=== PATIENT | male | born 1950 | race Caucasian/White ===

== ENCOUNTER 2022-04-26 07:37 | Outpatient (CLI) | payer MEDICARE, SELFPAY ==
--- NOTE | ~2022-04-26 | XR_ITS ---
EXAMINATION: XR UGI w barium swallow DATE: 04/26/2022 08:07 INDICATION: Dysphagia, unspecified. TECHNIQUE: The patient drank thick barium, gas-producing crystals, and thin barium. Fluoroscopy of th e esophagus, stomach, and proximal small bowel was performed. Fluoroscopy exposure time was 0.8 minut es. The total number of images was 533. Total dose-area product was 3.024 Gy-cm^2. COMPARISON: None. FINDINGS: There is no mass or stricture of the esophagus. Esophageal motility is normal. There is no hiatal hernia. There was no gastroesophageal reflux with provocative maneuvers. The stomach folding p attern is normal. There is a diverticulum of the third portion of the duodenum. IMPRESSION: 1. No etiology for the patient's symptoms. Reviewed, dictated and finalized at location A.
== END 2022-04-26 07:38 | disposition home or self-care (01) ==
PROVIDERS: PCP Internal Medicine; Visit Provider Internal Medicine
DX: R13.10 Dysphagia, unspecified (principal)
CPT/HCPCS: 74240

== ENCOUNTER 2024-11-20 09:28 | Outpatient (CLI) | payer MEDICARE, SELFPAY ==
--- NOTE | ~2024-11-20 | US_ITS ---
EXAMINATION: US aorta [facility] scr[facility] DATE: 11/20/2024 15:24 CDT INDICATION: Personal history of nicotine dependence TECHNIQUE: Grayscale, color Doppler, and pulsed Doppler images of the aorta and common iliac arteries were obtained. COMPARISON: None. FINDINGS: The proximal aorta measures 2 cm greatest sagittal dimension. The mid aorta measures 2 cm greatest sa gittal dimension. The distal aorta measures 2.1 cm greatest sagittal dimension. The right common inte rnal iliac artery measures 1.6 cm. The left common iliac artery measures 1.4 cm. IMPRESSION: 1. Normal caliber aorta without evidence for aneurysm. Reviewed, dictated and finalized at location A.
--- NOTE | ~2024-11-20 | US_ITS ---
US abdomen limited INDICATION: Abnormal laboratory studies PROCEDURE: Realtime right upper abdominal ultrasound. COMPARISON: No prior studies for comparison. FINDINGS: The pancreas is normal without focal mass or pancreatic ductal dilation. Liver echotexture is increased, consistent with fatty infiltration. Liver is enlarged measuring 19 cm. There is nik l directional flow in the portal vein. Gallbladder is surgically absent. Common bile duct measures 4 mm. No sonographic Adkins's sign. IMPRESSION: 1: Hepatomegaly with fatty infiltration of the liver. Reviewed, dictated and finalized at location A.
== END 2024-11-20 09:29 | disposition home or self-care (01) ==
LOC: GOSHIMG 09:29
PROVIDERS: PCP Family Medicine; Visit Provider Family Medicine
DX: K76.0 Fatty (change of) liver, not elsewhere classified (principal); R74.8 Abnormal levels of other serum enzymes; Z87.891 Personal history of nicotine dependence
CPT/HCPCS: 76705; 76706

== ENCOUNTER 2025-06-21 19:27 | Observation (INO) | payer MEDICARE, SELFPAY ==
--- NOTE | ~2025-06-21 | XR_ITS ---
EXAMINATION: XR chest 2V 06/21/2025 21:44 INDICATION: Fever, cough and influenza PROCEDURE: 2 view chest COMPARISON: No prior studies for comparison. FINDINGS: The lungs are clear. The cardiomediastinal silhouette is within normal limits. There are no pleural effusions. There is no pneumothorax suspected. IMPRESSION: 1: NO ACUTE CARDIOPULMONARY DISEASE. Reviewed, dictated and finalized at location O. HAULER HELPER
[2025-06-21 19:48] VITALS: BP 142/82; PULSE 139; RESP 20; TEMP 38.8; O2SAT 93
--- NOTE | 2025-06-21 19:58 | ECG_ITS ---
Test Date: 2025-06-21 20:02:54 Measurements Intervals [place] Rate: 136 P: 30 CT: 149 QRS: 115 QRSD: 90 T: 3 QT: 294 QTc: 442 Interpretive Statements SINUS TACHYCARDIA RIGHT AXIS DEVIATION DELAYED PRECORDIAL R/S TRANSITION MINIMAL Q WAVES- INFERIOR LEADS BORDERLINE ST-T WAVE ABNORMALITY- INFERIOR LEADS ABNORMAL ECG No previous ECG available for comparison Electronically Signed On 06-21-2025 20:04:37 IMPROVEMENT NURSE by Wang Adorno D.O.
[2025-06-21] MEDS: ACETAMINOPHEN 500 MG TABLET 1000 MG PO (20:01)
[2025-06-21 20:48] LABS: Influenza A QL RT-PCR Positive (Negative); Influenza B QL RT-PCR Negative (Negative); RSV RNA, RT-PCR Negative (Negative); SARS-CoV-2 RNA PCR Negative (Negative)
[2025-06-21] MEDS: SODIUM CHLORIDE 0.9% IV 1,000 ML 999 ML IV CONT (22:02)
[2025-06-21 22:11] LABS: Hematocrit 49.8 % (42.0-52.0); Hemoglobin 16.9 g/dL (14.0-18.0); Immature Granulocyte Percent A 0.3 % (0-0.5); Lymphocytes Absolute Auto 0.46 K/mm3 (0.9-3.2); Mean Corpuscular HGB Conc 33.9 g/dl (32-36); Mean Corpuscular Hemoglobin 31.8 pg (26-34); Mean Corpuscular Volume 93.6 fl (80-100); Nucleated Red Blood Cells Absolute Auto 0.000 K/mm3 (0.0-0.012); Nucleated Red Blood Cells Perc 0.0 % (0.0-0.2); Platelet Count Result 203 k/mm3 (150-375); Red Blood Count 5.32 M/mm3 (4.6-6.20); White Blood Count 9.6 K/mm3 (4.5-10.0)
[2025-06-21 22:24] LABS: INR 1.1; Prothrombin Time 14.2 Seconds (11.1-14.7)
[2025-06-21 22:25] LABS: Partial Thromboplastin Time 26.1 Seconds (22.3-36.8)
[2025-06-21 22:26] LABS: Alanine Aminotransferase 102 U/L (6-50); Albumin Level 4.9 g/dL (3.5-5.1); Alkaline Phosphatase 117 U/L (38-126); Anion Gap 13 mmol/L (4-12); Aspartate Amino Transferase 111 U/L (17-59); Bilirubin,Total 1.3 mg/dL (0.2-1.3); Blood Urea Nitrogen 24 mg/dL (9-20); CRP 2.5 mg/dL (<1.0); Calcium 10.6 mg/dL (8.4-10.2); Carbon Dioxide 26 mmol/L (22-30); Chloride 100 mmol/L (98-107); Estimated CRCL calculation 32 ml/min; Estimated Glomerular Filt Rate 38; Glucose 181 mg/dL (65-110); Potassium 3.4 mmol/L (3.4-5.0); Sodium 139 mmol/L (137-145); Total Protein 9.2 g/dL (6.3-8.2)
[2025-06-21 23:00] LABS: Add Urine Microscopic? YES; Appearance Urine Clear (Clear); Glucose Urine UA 3+ mg/dL (Negative); Leukocyte Esterase Ur Negative LEU/UL (Negative); Nitrate Urine Negative (Negative); Non Pathogenic Casts 0-2; Specific Grav Ur 1.034 (1.001-1.035)
--- NOTE | 2025-06-21 23:10 | ED_ITS ---
HPI - General Adult General Chief complaint: Unspecified Stated complaint: high blood sugar Time Seen by Provider: 06/21/25 21:35 Source: patient Mode of arrival: wheelchair Limitations: no limitations History of Present Illness HPI narrative: This is a 75 year old male that presents to the ER for generalized weakness. Reports fevers, cough, body aches. Ongoing since this morning. He had a couple of ground level falls due to weakness. Reports no injuries sustained from them. Family witnessed falls, no head injuries. Related Data Home Medications ?Medication ?Instructions ?Recorded ?Confirmed ?Last Taken ?Type naproxen sodium 220 mg capsule 220 mg PO Q8H 08/10/19 04/12/22 Unknown History (Aleve) Allergies Allergy/AdvReac Type Severity Reaction Status Date / Time metformin AdvReac Mild Muscle Pain Verified 06/21/25 19:58 Review of Systems 2 Review of Systems: All systems reviewed & are unremarkable except as noted in HPI and below PMFSH Past Medical History Medical History (Updated 06/21/25 @ 23:42 by Alissa Abdullahi PA-C) Hypothyroidism (acquired) Type 2 diabetes mellitus without complication, without long-term current use of insulin Hypertension Social History Social History Smoking status: Unknown if ever smoked Alcohol intake: never Lack of Transportation: No Lack of Food: Never True Current Housing: I Have Housing Concerned About Future Housing: No Difficulty Paying Gas/Electric Bills: No Difficulty Paying for Meds: No Currently Unemployed: No Exam 2 Narrative: GENERAL: Ill-appearing, well-nourished, and in no acute distress. HEAD: Normocephalic, atraumatic. EYES: PERRLA and EOMI. ENT: Nares clear, no rhinorrhea or epistaxis. Mucous membranes moist. Oropharynx without tonsillar hypertrophy exudate or other lesions. Bilateral TMs pearly sanches non-bulging NECK: Supple. No adenopathy or masses. CHEST: Clear to auscultation. No respiratory distress. No wheezes rales or rhonchi HEART: Regular rate and rhythm. No murmur heard. Normal peripheral pulses. EXTREMITIES: Normal range of motion. No edema. SKIN: Warm, dry, no rash. NEURO: No focal deficits. Alert and oriented x3. CN II-XII grossly intact PSYCH: Normal mood and affect Course Vital Signs Vital signs: Vital Signs Temperature 101.8 F H 06/21/25 19:48 Pulse Rate 139 H 06/21/25 19:48 Respiratory Rate 20 06/21/25 19:48 Blood Pressure 142/82 H 06/21/25 19:48 Pulse Oximetry 93 06/21/25 19:48 Oxygen Delivery Room Air 06/21/25 19:48 Temperature 98.4 F 06/21/25 23:40 Pulse Rate 109 H 06/21/25 23:40 Respiratory Rate 18 06/21/25 23:40 Blood Pressure 115/74 06/21/25 23:40 Pulse Oximetry 94 06/21/25 23:40 Oxygen Delivery Room Air 06/21/25 19:48 MDM MDM Narrative Medical decision making narrative: Patient presents the emergency department for fevers, cough, body aches, generalized weakness. Patient febrile and tachycardic upon arrival, this improved with dose of Tylenol and IV fluids. Cbc without leukocytosis. Metabolic panel with evidence of dehydration. Influenza A positive. Patient started on Tamiflu. Chest x-ray without acute cardiopulmonary abnormality. Urine without evidence of infection. Patient will be admitted to the hospitalist service for further management Differential Diagnosis Differential Diagnosis: influenza, COVID, pneumonia, dehydration, electrolyte derangement Lab Data MDM Lab Attestation statement: I personally reviewed the patient's lab results. 06/21/25 22:00 06/21/25 22:00 Labs: Lab Results 06/21/25 06/21/25 06/21/25 Range/Units 19:51 20:06 22:00 WBC 9.6 (4.5-10.0) K/mm3 RBC 5.32 (4.6-6.20) M/mm3 Hgb 16.9 (14.0-18.0) g/dL Hct 49.8 (42.0-52.0) % MCV 93.6 (80-100) fl MCH 31.8 (26-34) pg MCHC 33.9 (32-36) g/dl RDW 13.7 (11.5-14.5) % Plt Count 203 (150-375) k/mm3 MPV 10.7 H (7.4-10.4) fl Immature Gran % (Auto) 0.3 (0-0.5) % Neut % (Auto) 84.1 H (45.5-73.1) % Lymph % (Auto) 4.8 L (18.3-44.2) % [place] % (Auto) 10.3 H (2.6-8.5) % Eos % (Auto) 0.0 (0-4.4) % Baso % (Auto) 0.5 (0.2-1.2) % Lymph # (Auto) 0.46 L (0.9-3.2) K/mm3 [place] # (Auto) 1.0 H (0.1-0.6) K/mm3 Eos # (Auto) 0.0 (0-0.3) K/mm3 Baso # (Auto) 0.1 (0.0-0.1) K/mm3 Abs Immat Gran (auto) 0.03 (0.00-0.031) K/mm3 Absolute Neuts (auto) 8.1 H (1.3-6.7) K/mm3 Absolute Nucleated RBC 0.000 (0.0-0.012) K/mm3 Nucleated RBC % 0.0 (0.0-0.2) % PT 14.2 (11.1-14.7) Seconds INR 1.1 APTT 26.1 (22.3-36.8) Seconds Sodium 139 (137-145) mmol/L Potassium 3.4 (3.4-5.0) mmol/L Chloride 100 (98-107) mmol/L Carbon Dioxide 26 (22-30) mmol/L Anion Gap 13 H (4-12) mmol/L BUN 24 H (9-20) mg/dL Creatinine 1.78 H (0.7-1.3) mg/dL Estim Creat Clear Calc 32 ml/min Estimated GFR 38 L (59 - ) Glucose 181 H (65-110) mg/dL POC Capillary Glucose 194 H (65-105) mg/dl Lactic Acid 1.6 (0.7-2.0) mmol/L Calcium 10.6 H (8.4-10.2) mg/dL Total Bilirubin 1.3 (0.2-1.3) mg/dL AST 111 H (17-59) U/L ALT 102 H (6-50) U/L Alkaline Phosphatase 117 (38-126) U/L C-Reactive Protein 2.5 H (<1.0) mg/dL Total Protein 9.2 H (6.3-8.2) g/dL Albumin 4.9 (3.5-5.1) g/dL Urine Color (Yellow) Urine Appearance (Clear) Urine pH (5.0-9.0) Ur Specific [place] (1.001-1.035) Urine Protein (Negative) mg/dL Urine Glucose (UA) (Negative) mg/dL Urine Ketones (Negative) mg/dL Ur Blood (Man) (Negative) Urine Nitrate (Negative) Urine Bilirubin (Negative) Urine Urobilinogen (<2.0) mg/dL Leukocyte Esterase Rfl (Negative) NATALIE/UL Urine RBC (0-2) /hpf Urine WBC (0-3) /hpf Ur Squamous Epith Cells (Few) /hpf Urine Bacteria /hpf Urine Casts Influenza A (RT-PCR) Positive A (Negative) Influenza B (RT-PCR) Negative (Negative) RSV (RT-PCR) Negative (Negative) SARS-CoV-2 RNA (RT-PCR) Negative (Negative) 06/21/25 Range/Units 22:49 WBC (4.5-10.0) K/mm3 RBC (4.6-6.20) M/mm3 Hgb (14.0-18.0) g/dL Hct (42.0-52.0) % MCV (80-100) fl MCH (26-34) pg MCHC (32-36) g/dl RDW (11.5-14.5) % Plt Count (150-375) k/mm3 MPV (7.4-10.4) fl Immature Gran % (Auto) (0-0.5) % Neut % (Auto) (45.5-73.1) % Lymph % (Auto) (18.3-44.2) % [place] % (Auto) (2.6-8.5) % Eos % (Auto) (0-4.4) % Baso % (Auto) (0.2-1.2) % Lymph # (Auto) (0.9-3.2) K/mm3 [place] # (Auto) (0.1-0.6) K/mm3 Eos # (Auto) (0-0.3) K/mm3 Baso # (Auto) (0.0-0.1) K/mm3 Abs Immat Gran (auto) (0.00-0.031) K/mm3 Absolute Neuts (auto) (1.3-6.7) K/mm3 Absolute Nucleated RBC (0.0-0.012) K/mm3 Nucleated RBC % (0.0-0.2) % PT (11.1-14.7) Seconds INR APTT (22.3-36.8) Seconds Sodium (137-145) mmol/L Potassium (3.4-5.0) mmol/L Chloride (98-107) mmol/L Carbon Dioxide (22-30) mmol/L Anion Gap (4-12) mmol/L BUN (9-20) mg/dL Creatinine (0.7-1.3) mg/dL Estim Creat Clear Calc ml/min Estimated GFR (59 - ) Glucose (65-110) mg/dL POC Capillary Glucose (65-105) mg/dl Lactic Acid (0.7-2.0) mmol/L Calcium (8.4-10.2) mg/dL Total Bilirubin (0.2-1.3) mg/dL AST (17-59) U/L ALT (6-50) U/L Alkaline Phosphatase (38-126) U/L C-Reactive Protein (<1.0) mg/dL Total Protein (6.3-8.2) g/dL Albumin (3.5-5.1) g/dL Urine Color Yellow (Yellow) Urine Appearance Clear (Clear) Urine pH 5.5 (5.0-9.0) Ur Specific [place] 1.034 (1.001-1.035) Urine Protein 1+ H (Negative) mg/dL Urine Glucose (UA) 3+ H (Negative) mg/dL Urine Ketones 1+ H (Negative) mg/dL Ur Blood (Man) Trace (Negative) Urine Nitrate Negative (Negative) Urine Bilirubin Negative (Negative) Urine Urobilinogen 0.2 (<2.0) mg/dL Leukocyte Esterase Rfl Negative (Negative) NATALIE/UL Urine RBC 0-2 (0-2) /hpf Urine WBC 0-5 (0-3) /hpf Ur Squamous Epith Cells None seen (Few) /hpf Urine Bacteria None seen /hpf Urine Casts 0-2 Influenza A (RT-PCR) (Negative) Influenza B (RT-PCR) (Negative) RSV (RT-PCR) (Negative) SARS-CoV-2 RNA (RT-PCR) (Negative) Imaging Data Radiologist's impression: ITS Impressions Chest X-Ray 06/21/25 22:05 IMPRESSION: 1: NO ACUTE CARDIOPULMONARY DISEASE. Critical Care Time Critical Care Time Critical Care Time: No Discharge Plan Discharge Clinical Impression: Influenza A, Weakness, Dehydration Patient Disposition: Still a Patient Condition: Improved Patient Language: Azeri Prescriptions: No Action naproxen sodium [Aleve] 220 mg capsule 220 mg PO Q8H Januvia 25 mg tablet 25 mg PO DAILY Qty: 90 0RF Rx Instructions: Take 1 tablet po qd x 30 days then increase to 2 tablets po qd metformin 1,000 mg tablet See Rx Instructions .ROUTE .COMPLEX Qty: 180 1RF Dose Instruction: TAKE 1 TABLET BY MOUTH TWICE DAILY Rx Instructions: TAKE 1 TABLET BY MOUTH TWICE DAILY (DME) blood-glucose meter [Accu-Chek Guide Glucose Meter] Misc See Rx Instructions .Route Qty: 1 0RF Rx Instructions: As directed (DME) Accu-Chek Guide test strips Strip See Rx Instructions .Route Qty: 100 0RF Rx Instructions: Check blood glucose 1xdaily As directed clobetasol 0.05 % cream 1 applic topical BID 7 Days Qty: 60 2RF Rx Instructions: apply to knee, neck, arms lisinopril-hydrochlorothiazide 20-12.5 mg tablet See Rx Instructions .ROUTE .COMPLEX Qty: 180 1RF Dose Instruction: TAKE 1 TABLET BY MOUTH TWICE A DAY Rx Instructions: TAKE 1 TABLET BY MOUTH TWICE A DAY levothyroxine 75 mcg tablet See Rx Instructions .ROUTE .COMPLEX Qty: 90 1RF Dose Instruction: TAKE 1 TABLET BY MOUTH EVERY DAY Rx Instructions: TAKE 1 TABLET BY MOUTH EVERY DAY Jardiance 25 mg tablet See Rx Instructions .ROUTE .COMPLEX Qty: 90 1RF Dose Instruction: TAKE 1 TABLET BY MOUTH EVERY DAY IN THE MORNING Rx Instructions: TAKE 1 TABLET BY MOUTH EVERY DAY IN THE MORNING Follow-up/Referrals: Jose Guadalupe Mccormick MD [Primary Care Provider, [facility]]
[2025-06-21 23:18] VITALS: BP 115/74; PULSE 108; RESP 18; TEMP 36.9; O2SAT 94
[2025-06-21 23:19] VITALS: TEMP 36.9
[2025-06-21] MEDS: OSELTAMIVIR PHOSPHATE 75 MG CAPSULE PO (23:19)
[2025-06-21 23:40] VITALS: BP 115/74; PULSE 109; RESP 18; TEMP 36.9; O2SAT 94
[2025-06-21 23:58] LABS: Creatine Kinase 126 U/L (55-170)
[2025-06-22] VITALS (14 sets, daily range): BP systolic 122–136; BP diastolic 71–109; PULSE 94–123; RESP 17–21; TEMP 36.7–36.8; O2SAT 89–96; BMI 27.1
[2025-06-22] MEDS: SODIUM CHLORIDE 0.9% IV 1,000 ML 100 ML IV CONT (00:17)
--- NOTE | 2025-06-22 02:11 | WPCEDHO ---
ED Hand Off Checklist All vitals saved:yes IV Site documented:yes All med administrations documented:yes Triage Note Triage Note DAUGHTER REPORTS ARTEM HAS 06/21/25 21:31 FALLEN TWICE TODAY. DAUGHTER REPORTS PATIENT HAS BEEN CONGESTED FOR SEVERAL WEEKS. REPORTED TO BE EXTREMELY WEAK. DENIES PAIN. APPETITE GOOD. NON PRODUCTIVE COUGH. RUNNY NOSE. HOARSENESS. UNKNOWN FEVER. NO REPORTED MEDICAL CARE. Allergies metformin Adverse Reaction (Mild, Verified 06/21/25 19:58) Muscle Pain Active Medications including assessments/comments Sodium Chloride (Normal Saline Iv) 1,000 mls @ 100 mls/hr IV CONT .Q10H AUGUST Stop: 06/22/25 09:44 Last Admin: 06/22/25 00:17 Dose: 100 mls/hr Documented By: LAURIE Infusion/Titration Document 06/22/25 00:17 LAURIE (Rec: 06/22/25 00:17 EMW [id number]) Intake IV Site Peripheral Access Left Antecubital Container Volume 1,000 Waste Amount 0 Dosing Infusion Rate 100 Cumulative Dose Not Applicable Increase/Decrease Started Elapsed Time Elapsed Time ( 0m minutes) Administered/Completed Medications Discontinued Medications Acetaminophen (Acetaminophen 500 Mg Tablet) 1,000 mg PO ONCE STA Stop: 06/21/25 20:00 Last Admin: 06/21/25 20:01 Dose: 1,000 mg Documented By: RICKS Sodium Chloride (Normal Saline Iv) 1,000 mls @ 999 mls/hr IV CONT .Q1H1M STA Stop: 06/21/25 22:37 Last Infusion: 06/21/25 23:13 Dose: Infused Documented By: Admin: 06/21/25 22:02 Dose: 999 mls/hr Documented By: LAURIE Oseltamivir Phosphate (Oseltamivir Phosphate 75 Mg Capsule) 75 mg PO ONCE STA Stop: 06/21/25 23:12 Last Admin: 06/21/25 23:19 Dose: 75 mg Documented By: LAURIE Interventions/Assessments Cardiac Monitoring Start: 06/21/25 19:28 Freq: Status: Active Protocol: Document 06/22/25 00:23 CHANAW (Rec: 06/22/25 00:23 EMW [id number]) Logging Assistant Assessment Pulse Rate (60-100) 106 H General Assessment Start: 06/21/25 19:28 Freq: Status: Active Protocol: Document 06/21/25 22:08 EMW (Rec: 06/21/25 22:09 EMW [id number]) GA Respiratory Assessment Symptoms Congestion,Cough Cough Description Acute,Dry IV / Saline Lock, Insert Start: 06/21/25 19:28 Freq: Status: Active Protocol: Document 06/21/25 22:02 EMW (Rec: 06/21/25 22:02 EMW [id number]) IV Assessment Peripheral Access Left Antecubital IV Catheter Access Initiated IV Insertion Date 06/21/25 IV Insertion Time 22:02 Catheter Gauge 18 IV Insertion 1 Attempts Ultrasound Used for No Placement IV Site Assessment WNL IV Care and WNL Maintenance Additional IV placed by shell RN Comments Last Vital Signs Temperature 98.4 F 06/21/25 23:40 Pulse Rate 102 H 06/22/25 02:01 Respiratory Rate 21 H 06/22/25 02:01 Pulse Oximetry 94 06/22/25 02:01 Blood Pressure 127/71 06/22/25 02:01 Blood Pressure Mean 87 06/22/25 02:01 Blood Pressure Position Sitting 06/21/25 23:40 Oxygen Delivery Room Air 06/21/25 19:48 Weight 81.66 kg 06/21/25 19:48 Last Result - Abnormals Only MPV 10.7 fl (7.4-10.4) H 06/21/25 22:00 Neut % (Auto) 84.1 % (45.5-73.1) H 06/21/25 22:00 Lymph % (Auto) 4.8 % (18.3-44.2) L 06/21/25 22:00 [place] % (Auto) 10.3 % (2.6-8.5) H 06/21/25 22:00 Lymph # (Auto) 0.46 K/mm3 (0.9-3.2) L 06/21/25 22:00 [place] # (Auto) 1.0 K/mm3 (0.1-0.6) H 06/21/25 22:00 Absolute Neuts (auto) 8.1 K/mm3 (1.3-6.7) H 06/21/25 22:00 Anion Gap 13 mmol/L (4-12) H 06/21/25 22:00 BUN 24 mg/dL (9-20) H 06/21/25 22:00 Creatinine 1.78 mg/dL (0.7-1.3) H 06/21/25 22:00 Estimated GFR 38 (59-) L 06/21/25 22:00 Glucose 181 mg/dL (65-110) H 06/21/25 22:00 POC Capillary Glucose 176 mg/dl (65-105) H 06/22/25 00:10 Calcium 10.6 mg/dL (8.4-10.2) H 06/21/25 22:00 AST 111 U/L (17-59) H 06/21/25 22:00 ALT 102 U/L (6-50) H 06/21/25 22:00 C-Reactive Protein 2.5 mg/dL (<1.0) H 06/21/25 22:00 Total Protein 9.2 g/dL (6.3-8.2) H 06/21/25 22:00 Urine Protein 1+ mg/dL (Negative) H 06/21/25 22:49 Urine Glucose (UA) 3+ mg/dL (Negative) H 06/21/25 22:49 Urine Ketones 1+ mg/dL (Negative) H 06/21/25 22:49 Influenza A (RT-PCR) Positive (Negative) A 06/21/25 20:06 Most Recent Suicide Severity Rating Suicide Severity Rating NO RISK INDICATED 06/21/25 21:31
--- NOTE | 2025-06-22 07:08 | PM.IMHP2 ---
H&P: HPI History of Present Illness Date/Time: 06/22/25 07:08 Chief Complaint: High blood sugar Narrative: This is a 75-year-old male patient came to the emergency room with complaints of generalized weakness. He has a history of hypothyroidism, diabetes, and hypertension. The patient reports fevers, body aches and cough. It started the a.m. prior to being seen in the emergency room. The patient also had a couple falls related to his weakness. He denied any injury sustained from the fall. Family members were present when the falls occur and reported that there were no head injuries. His anion gap is 13. BUN 24 and creatinine 1.78. His GFR is 38. His baseline GFR somewhere between 41 and 49. His blood sugar was 188 in repeat was 159. AST is 111 an ALT 102. Patient has 1+ protein, 3+ glucose and 1+ ketones in his urine. The patient was found to be positive for influenza A. The patient was started on IV fluids, Tylenol and Tamiflu. Chest x-ray was read as no acute cardiopulmonary disease. His pulse oximetry declined to 89 %, the patient was placed on oxygen at 2 L per nasal cannula. Patient does not typically wear oxygen. The patient is being admitted for observation status on the date of service of 06/22/2025. Review of Systems Constitutional: Constitutional: Reports as per HPI and Reports no additional constitutional complaints Eyes: Eyes: Reports as per HPI and Reports no additional eye complaints ENT: Reports system reviewed and no additional complaints, except as documented and Reports Normal hearing present Cardiovascular: Cardiovascular: Reports no additional cardiovascular complaints Respiratory: Respiratory: Reports as per HPI and Reports no additional respiratory complaints Gastrointestinal: Gastrointestinal: Reports as per HPI and Reports no additional gastrointestinal complaints Musculoskeletal: Musculoskeletal: Reports no additional musculoskeletal complaints Integumentary/Breasts: Skin/Breast: Reports system reviewed and no additional complaints, except as docu Neurologic: Reports system reviewed and no additional complaints, except as documented and Reports Normal hearing present Psychiatric: Psychiatric: Reports no additional psychiatric complaints and Reports as per HPI Hematologic/Lymphatic: Hematologic/Lymphatic: Reports no additional hematologic/lymphatic complaints Allergic/Immunologic: Allergic/Immunologic: Reports no additional allergic/immunologic complaints [facility] Past Medical History Medical History (Updated 06/22/25 @ 07:41 by JELANI Lama) Influenza A Chronic renal failure, stage 3b Hypothyroidism (acquired) Type 2 diabetes mellitus without complication, without long-term current use of insulin Hypertension Surgical History Surgical History History of appendectomy History of tonsillectomy and adenoidectomy Hx of cholecystectomy Family History Family History Mother Breast cancer Social History Social History (Updated 06/22/25 @ 07:22 by Tabitha Burden APRN) Social History: He is and lives with his . He was a former smoker. He is retired. He has 3 children. Code status: Full code Smoking status: Former smoker Tobacco type: cigarettes Alcohol intake: current Drinks per week: 7 Substance use: former Substance use type: does not use Lack of Transportation: No Lack of Food: Never True Current Housing: I Have Housing Concerned About Future Housing: No Difficulty Paying Gas/Electric Bills: No Difficulty Paying for Meds: No Currently Unemployed: No Education: High School Diploma/GED Difficulty w/ Childcare or Family Care: No Spiritual care concerns: No Meds Home Medications and Allergies Home Medications ?Medication ?Instructions ?Recorded ?Confirmed ?Type naproxen sodium 220 mg capsule 220 mg PO Q8H 08/10/19 06/22/25 History (Aleve) metformin 1,000 mg tablet See Rx Instructions .Route 04/04/23 06/22/25 Rx Held on 05/31/23. .COMPLEX #180 tabs Instructions: .Provider Order blood-glucose meter (Accu-Chek #1 ea 03/28/24 06/22/25 Rx Guide Glucose Meter) blood sugar diagnostic (Accu-Chek #100 ea 04/23/24 06/22/25 Rx Guide test strips) clobetasol 0.05 % topical cream 1 applic topical BID psoriasis 1 11/28/24 06/22/25 Rx week #60 grams lisinopril 20 See Rx Instructions .Route 12/29/24 06/22/25 Rx mg-hydrochlorothiazide 12.5 mg .COMPLEX #180 tabs tablet sitagliptin phosphate 25 mg tablet 25 mg PO DAILY #90 tabs 01/08/25 06/22/25 Rx (Januvia) levothyroxine 75 mcg tablet See Rx Instructions .Route 03/25/25 06/22/25 Rx .COMPLEX #90 tabs empagliflozin 25 mg tablet See Rx Instructions .Route 04/01/25 06/22/25 Rx (Jardiance) .COMPLEX #90 tabs Allergies Allergy/AdvReac Type Severity Reaction Status Date / Time metformin AdvReac Mild Muscle Pain Verified 06/22/25 03:06 Vital Signs Vital Signs - 24 hr 06/21/25 19:48 06/21/25 23:18 06/21/25 23:19 Temperature 101.8 F H 98.4 F 98.4 F Pulse Rate 139 H 108 H Respiratory Rate 20 18 Blood Pressure 142/82 H 115/74 Pulse Oximetry 93 94 Oxygen Delivery Room Air Oxygen Flow Rate 06/21/25 23:40 06/22/25 00:15 06/22/25 00:23 Temperature 98.4 F Pulse Rate 109 H 104 H 106 H Respiratory Rate 18 17 Blood Pressure 115/74 Pulse Oximetry 94 92 Oxygen Delivery Oxygen Flow Rate 06/22/25 00:30 06/22/25 01:00 06/22/25 01:48 Temperature Pulse Rate 106 H 105 H 107 H Respiratory Rate 20 21 H 20 Blood Pressure 133/92 H Pulse Oximetry 93 93 93 Oxygen Delivery Oxygen Flow Rate 06/22/25 02:00 06/22/25 02:01 06/22/25 02:15 Temperature Pulse Rate 103 H 102 H 102 H Respiratory Rate 20 21 H 19 Blood Pressure 127/71 127/71 Pulse Oximetry 94 94 95 Oxygen Delivery Oxygen Flow Rate 06/22/25 02:29 06/22/25 02:29 06/22/25 03:02 Temperature 98.3 F Pulse Rate 107 H Respiratory Rate 18 Blood Pressure 122/75 Pulse Oximetry 89 L 95 96 Oxygen Delivery Room Air Nasal Cannula Oxygen Flow Rate 2 06/22/25 04:00 Temperature 98.1 F Pulse Rate 106 H Respiratory Rate 18 Blood Pressure 135/109 H Pulse Oximetry 95 Oxygen Delivery Oxygen Flow Rate Exam Const: General: cooperative, no acute distress, well developed, awake, Physically active, average body habitus and well nourished Nutritional Appearance: average body habitus and well nourished Orientation/consciousness: oriented to person, oriented to place, oriented to time and patient oriented x3 Limitations: no limitations HENMT: Head: normal to inspection and abrasion Ears: hearing grossly normal bilaterally Eyes: General: appearance normal, both eyes and all related structures Alignment and Position: alignment normal Eyelids: eyelids normal EOM: EOMs intact bilaterally Neck: Neck: normal visual inspection and full ROM Resp: Effort & Inspection: normal respiratory effort Auscultation: clear to auscultation bilaterally Cardio: Palpation: normal PMI Rate: regular rate Rhythm: regular rhythm Heart sounds: S1 normal heart sound present and S2 normal heart sound present Peripheral pulses: Peripheral pulses 2+ throughout GI: Inspection: normal to inspection Percussion: Yes normal to percussion Auscultation: normal bowel sounds Rectal Exam: deferred : General: Yes no CVA tenderness Back/Spine/Pelvis: Back: no CVA tenderness Cervical Spine: cervical ROM normal Skin: General skin exam: normal color Lesions: no lesions Rashes: no rashes Trauma: no lacerations or abrasions Wounds: no wounds Hair: normal Nails: normal Neuro: General: oriented to person, oriented to place, oriented to time and patient oriented x3 Cranial nerves: Yes Equal, round and reactive pupils present and Yes Normal hearing present Cognition (Neuro): normal cognition Speech: normal speech Motor exam (neuro): 5/5 motor strength present throughout Sensory Exam: normal sensation Extrem: General: normal to inspection Right upper extremity: normal to inspection and shoulder/upper arm Left upper extremity: normal to inspection and shoulder/upper arm Right lower extremity: normal to inspection Left lower extremity: normal to inspection Psych: Appearance: grossly normal Mental Status: mental status grossly normal Speech and movement: Normal speech and movement present Affect: normal affect Attitude: cooperative Thought process: Normal thought process present Thought content: Yes Normal thought content present Insight: Good insight present (Psych) Judgement: Good judgement present (Psych) Results Labs Labs: Short CBC 06/21/25 Range/Units 22:00 WBC 9.6 (4.5-10.0) K/mm3 Hgb 16.9 (14.0-18.0) g/dL Hct 49.8 (42.0-52.0) % Plt Count 203 (150-375) k/mm3 BMP 06/21/25 22:00 Sodium 139 Potassium 3.4 Chloride 100 Carbon Dioxide 26 BUN 24 H Creatinine 1.78 H Glucose 181 H Calcium 10.6 H Cardiac Enzymes 06/21/25 Range/Units 21:59 Total Creatine Kinase 126 (55-170) U/L Liver Function 06/21/25 Range/Units 22:00 Total Bilirubin 1.3 (0.2-1.3) mg/dL AST 111 H (17-59) U/L ALT 102 H (6-50) U/L Alkaline Phosphatase 117 (38-126) U/L Albumin 4.9 (3.5-5.1) g/dL Urine 06/21/25 Range/Units 22:49 Urine Color Yellow (Yellow) Urine Appearance Clear (Clear) Urine pH 5.5 (5.0-9.0) Ur Specific [place] 1.034 (1.001-1.035) Urine Protein 1+ H (Negative) mg/dL Urine Glucose (UA) 3+ H (Negative) mg/dL ECG Interpretation: Test Date: 2025-06-21 20:02:54 Measurements Intervals [place] Rate: 136 P: 30 [place]: 149 QRS: 115 QRSD: 90 T: 3 QT: 294 QTc: 442 Interpretive Statements SINUS TACHYCARDIA RIGHT AXIS DEVIATION DELAYED PRECORDIAL R/S TRANSITION MINIMAL Q WAVES- INFERIOR LEADS BORDERLINE ST-T WAVE ABNORMALITY- INFERIOR LEADS ABNORMAL ECG No previous ECG available for comparison Electronically Signed On 06-21-2025 20:04:37 FIELD SALES REPRESENTATIVE by Wang Adorno D.O. Imaging Chest x-ray: Radiologist's impression: ITS Impressions Chest X-Ray 06/21/25 22:05 IMPRESSION: 1: NO ACUTE CARDIOPULMONARY DISEASE. Quality VTE Prophylaxis VTE prophylaxis: mechanical ordered Assessment and Plan Assessment and plan (1) Influenza A: Code(s): J10.1 - Influenza due to other identified influenza virus with other respiratory manifestations Status: Acute Assessment and Plan: -the patient was started IV fluids -the patient was started on Tamiflu. -the patient was so weak that he was falling. -may consider PT OT if no improvement (2) Hypertension: Code(s): I10 - Essential (primary) hypertension Status: Acute Assessment and Plan: -patient is lisinopril hydrochlorothiazide which she is currently hold. -p.r.n. hydralazine with parameters. (3) Type 2 diabetes mellitus without complication, without long-term current use of insulin: Code(s): E11.9 - Type 2 diabetes mellitus without complications Status: Acute Assessment and Plan: -Accu-Cheks AC and HS with sliding scale insulin hypoglycemic protocol. -A1c was 7.7 on 04/25/2020 -diabetic diet -the patient has had poor appetite since he has been ill. -blood sugar initially was 194 now is 134. -metformin is on at this time. -continue jardiANCE (4) Hypothyroidism (acquired): Code(s): E03.9 - Hypothyroidism, unspecified Status: Acute Assessment and Plan: -continue levothyroxine (5) Chronic renal failure, stage 3b: Code(s): N18.32 - Chronic kidney disease, stage 3b Status: Acute Assessment and Plan: -monitor electrolytes. -avoid nephrotoxic medication. -his creatinine is 1.78 in his last value was 1132 on 08/25/2021. No recent labs for comparison. -GFR 38 with a last known value 48 on 04/25/2025. -continue with gentle hydration. -CONTINUE WITH JARDIANCE -MAY CONSIDER NEPHROLOGY CONSULT IF RENAL FUNCTION WORSENS. -AORTA RENAL ULTRASOUND 11/20/2024 SHOWS NORMAL CALIBER URETER WITHOUT ANY EVIDENCE OF ANEURYSM.
--- NOTE | 2025-06-22 07:39 | P.PNIM_ITS ---
Assessment and Plan Assessment and Plan (1) Influenza A: Code(s): J10.1 - Influenza due to other identified influenza virus with other respiratory manifestations Status: Acute (2) Acute kidney injury superimposed on CKD: Code(s): N17.9 - Acute kidney failure, unspecified; N18.9 - Chronic kidney disease, unspecified Status: Acute (3) Type 2 diabetes mellitus without complication, without long-term current use of insulin: Code(s): E11.9 - Type 2 diabetes mellitus without complications Status: Acute (4) Hypertension: Code(s): I10 - Essential (primary) hypertension Status: Acute (5) Transaminitis: Code(s): R74.01 - Elevation of levels of liver transaminase levels Status: Acute (6) Hypothyroidism (acquired): Code(s): E03.9 - Hypothyroidism, unspecified Status: Acute Plan Dispo: DVT prophylaxis: Code status: Medical Record Review I have reviewed the following patient records and this information was taken into consideration when formulating the assessment and plan.: previous labs Subjective Date/time seen: 06/22/25 07:39 Interval history: Patient seen and examined at bedside. Review of Systems Review of Systems: All systems reviewed & are unremarkable except as noted in HPI and below Exam Narrative: General: NAD Eyes: EOMI ENT: neck supple Cardiovascular: Regular rate and rhythm Respiratory: Clear to auscultation, respirations even and unlabored on RA Gastrointestinal: Soft, non tender Genitourinary: no suprapubic tenderness Musculoskeletal: No edema Skin: warm, dry Neuro: Alert. Psych: Mood appropriate Objective Data Vital Signs Vital Signs: Vital Signs - 24 hr 06/21/25 19:48 06/21/25 23:18 06/21/25 23:19 Temperature 101.8 F H 98.4 F 98.4 F Pulse Rate 139 H 108 H Respiratory Rate 20 18 Blood Pressure 142/82 H 115/74 Pulse Oximetry 93 94 Oxygen Delivery Room Air Oxygen Flow Rate 06/21/25 23:40 06/22/25 00:15 06/22/25 00:23 Temperature 98.4 F Pulse Rate 109 H 104 H 106 H Respiratory Rate 18 17 Blood Pressure 115/74 Pulse Oximetry 94 92 Oxygen Delivery Oxygen Flow Rate 06/22/25 00:30 06/22/25 01:00 06/22/25 01:48 Temperature Pulse Rate 106 H 105 H 107 H Respiratory Rate 20 21 H 20 Blood Pressure 133/92 H Pulse Oximetry 93 93 93 Oxygen Delivery Oxygen Flow Rate 06/22/25 02:00 06/22/25 02:01 06/22/25 02:15 Temperature Pulse Rate 103 H 102 H 102 H Respiratory Rate 20 21 H 19 Blood Pressure 127/71 127/71 Pulse Oximetry 94 94 95 Oxygen Delivery Oxygen Flow Rate 06/22/25 02:29 06/22/25 02:29 06/22/25 03:02 Temperature 98.3 F Pulse Rate 107 H Respiratory Rate 18 Blood Pressure 122/75 Pulse Oximetry 89 L 95 96 Oxygen Delivery Room Air Nasal Cannula Oxygen Flow Rate 2 06/22/25 04:00 Temperature 98.1 F Pulse Rate 106 H Respiratory Rate 18 Blood Pressure 135/109 H Pulse Oximetry 95 Oxygen Delivery Oxygen Flow Rate Intake/Output Intake/Output: Intake & Output 06/19/25 06/20/25 06/21/25 06/22/25 23:59 23:59 23:59 23:59 Intake Total 1000 200 Balance 1000 200 Meds/Results Medications: Active Medications Generic Name Dose Route Start Last Admin Trade Name Freq PRN Reason Stop Dose Admin Dextrose 12.5 gm 06/22/25 07:16 Dextrose 50% 25 Gm/50 Ml Syringe IV PUSH PRN PRN Hypoglycemia Protocol Glucagon 1 mg 06/22/25 07:16 Glucagon For Inj 1 Mg Vial IM PRN PRN Hypoglycemia Protocol Glucose 15 gm 06/22/25 07:16 Glucose Oral Gel 15 Gm Of Glucse In 37.5 Gm Tube PO PRN PRN Hypoglycemia Protocol Hydralazine HCl 10 mg 06/22/25 07:09 Hydralazine Hcl 20 Mg/Ml Vial IV PUSH Q8H PRN Blood Pressure - High Sodium Chloride 1,000 mls @ 100 mls/hr 06/21/25 23:45 06/22/25 00:17 Normal Saline Iv IV CONT 06/22/25 09:44 100 mls/hr .Q10H AUGUST Administration Dextrose 1,000 mls @ 100 mls/hr 06/22/25 07:16 Dextrose 5% 1,000 Ml IVPB PRN PRN Hypoglycemia Protocol Insulin Aspart 2 - 5 units 06/22/25 08:00 Insulin Aspart (*Bkc) 100 Units/Ml SUB-Q TIDWM AUGUTS Protocol Levothyroxine Sodium 0 mcg 06/22/25 07:30 Levothyroxine Sodium 75 Mcg Tablet BY MOUTH .COMPLEX [facility] Oseltamivir Phosphate 30 mg 06/22/25 09:00 Oseltamivir Phosphate 30 Mg Capsule PO 06/27/25 08:59 Q12HR [facility] Radiology Results: ITS Impressions Chest X-Ray 06/21/25 22:05 IMPRESSION: 1: NO ACUTE CARDIOPULMONARY DISEASE. Labs Labs: Laboratory Results - last 24 hr 06/21/25 06/21/25 06/21/25 19:51 20:06 21:59 WBC RBC Hgb Hct MCV MCH MCHC RDW Plt Count MPV Immature Gran % (Auto) Neut % (Auto) Lymph % (Auto) [place] % (Auto) Eos % (Auto) Baso % (Auto) Lymph # (Auto) [place] # (Auto) Eos # (Auto) Baso # (Auto) Abs Immat Gran (auto) Absolute Neuts (auto) Absolute Nucleated RBC Nucleated RBC % PT INR APTT Sodium Potassium Chloride Carbon Dioxide Anion Gap BUN Creatinine Estim Creat Clear Calc Estimated GFR Glucose POC Capillary Glucose 194 H Lactic Acid Calcium Total Bilirubin AST ALT Alkaline Phosphatase Total Creatine Kinase 126 C-Reactive Protein Total Protein Albumin Urine Color Urine Appearance Urine pH Ur Specific [address] Urine Protein Urine Glucose (UA) Urine Ketones Ur Blood (Man) Urine Nitrate Urine Bilirubin Urine Urobilinogen Leukocyte Esterase Rfl Urine RBC Urine WBC Ur Squamous Epith Cells Urine Bacteria Urine Casts Influenza A (RT-PCR) Positive A Influenza B (RT-PCR) Negative RSV (RT-PCR) Negative SARS-CoV-2 RNA (RT-PCR) Negative 06/21/25 06/21/25 06/22/25 22:00 22:49 00:10 WBC 9.6 RBC 5.32 Hgb 16.9 Hct 49.8 MCV 93.6 MCH 31.8 MCHC 33.9 RDW 13.7 Plt Count 203 MPV 10.7 H Immature Gran % (Auto) 0.3 Neut % (Auto) 84.1 H Lymph % (Auto) 4.8 L [place] % (Auto) 10.3 H Eos % (Auto) 0.0 Baso % (Auto) 0.5 Lymph # (Auto) 0.46 L [place] # (Auto) 1.0 H Eos # (Auto) 0.0 Baso # (Auto) 0.1 Abs Immat Gran (auto) 0.03 Absolute Neuts (auto) 8.1 H Absolute Nucleated RBC 0.000 Nucleated RBC % 0.0 PT 14.2 INR 1.1 APTT 26.1 Sodium 139 Potassium 3.4 Chloride 100 Carbon Dioxide 26 Anion Gap 13 H BUN 24 H Creatinine 1.78 H Estim Creat Clear Calc 32 Estimated GFR 38 L Glucose 181 H POC Capillary Glucose 176 H Lactic Acid 1.6 Calcium 10.6 H Total Bilirubin 1.3 AST 111 H ALT 102 H Alkaline Phosphatase 117 Total Creatine Kinase C-Reactive Protein 2.5 H Total Protein 9.2 H Albumin 4.9 Urine Color Yellow Urine Appearance Clear Urine pH 5.[address] 1.034 Urine Protein 1+ H Urine Glucose (UA) 3+ H Urine Ketones 1+ H Ur Blood (Man) Trace Urine Nitrate Negative Urine Bilirubin Negative Urine Urobilinogen 0.2 Leukocyte Esterase Rfl Negative Urine RBC 0-2 Urine WBC 0-5 Ur Squamous Epith Cells None seen Urine Bacteria None seen Urine Casts 0-2 Influenza A (RT-PCR) Influenza B (RT-PCR) RSV (RT-PCR) SARS-CoV-2 RNA (RT-PCR) 06/22/25 06/22/25 02:48 07:25 WBC RBC Hgb Hct MCV MCH MCHC RDW Plt Count MPV Immature Gran % (Auto) Neut % (Auto) Lymph % (Auto) [place] % (Auto) Eos % (Auto) Baso % (Auto) Lymph # (Auto) [place] # (Auto) Eos # (Auto) Baso # (Auto) Abs Immat Gran (auto) Absolute Neuts (auto) Absolute Nucleated RBC Nucleated RBC % PT INR APTT Sodium Potassium Chloride Carbon Dioxide Anion Gap BUN Creatinine Estim Creat Clear Calc Estimated GFR Glucose POC Capillary Glucose 159 H 134 H Lactic Acid Calcium Total Bilirubin AST ALT Alkaline Phosphatase Total Creatine Kinase C-Reactive Protein Total Protein Albumin Urine Color Urine Appearance Urine pH Ur Specific [address] Urine Protein Urine Glucose (UA) Urine Ketones Ur Blood (Man) Urine Nitrate Urine Bilirubin Urine Urobilinogen Leukocyte Esterase Rfl Urine RBC Urine WBC Ur Squamous Epith Cells Urine Bacteria Urine Casts Influenza A (RT-PCR) Influenza B (RT-PCR) RSV (RT-PCR) SARS-CoV-2 RNA (RT-PCR)
[2025-06-22] MEDS: OSELTAMIVIR PHOSPHATE 30 MG CAPSULE PO (08:39)
[2025-06-22] MEDS: LEVOTHYROXINE SODIUM 75 MCG TABLET BY MOUTH (08:39)
[2025-06-22 10:46] LABS: Alanine Aminotransferase 79 U/L (6-50); Albumin Level 3.9 g/dL (3.5-5.1); Alkaline Phosphatase 88 U/L (38-126); Anion Gap 8 mmol/L (4-12); Aspartate Amino Transferase 89 U/L (17-59); Bilirubin,Total 0.9 mg/dL (0.2-1.3); Blood Urea Nitrogen 25 mg/dL (9-20); Calcium 8.5 mg/dL (8.4-10.2); Carbon Dioxide 27 mmol/L (22-30); Chloride 104 mmol/L (98-107); Estimated CRCL calculation 42 ml/min; Estimated Glomerular Filt Rate 52; Glucose 115 mg/dL (65-110); Potassium 3.6 mmol/L (3.4-5.0); Sodium 139 mmol/L (137-145); Total Protein 7.3 g/dL (6.3-8.2)
--- NOTE | 2025-06-22 15:05 | P.DS_ITS ---
DS: Admitting Diagnosis Discharge Date 06/22/25 Admitting Diagnosis - influenza A - HELEN - transaminitis DS: Discharge Diagnosis Discharge Diagnosis (1) Influenza A: Code(s): J10.1 - Influenza due to other identified influenza virus with other respiratory manifestations Status: Acute (2) Acute kidney injury superimposed on CKD: Code(s): N17.9 - Acute kidney failure, unspecified; N18.9 - Chronic kidney disease, unspecified Status: Acute (3) Type 2 diabetes mellitus without complication, without long-term current use of insulin: Code(s): E11.9 - Type 2 diabetes mellitus without complications Status: Acute (4) Hypertension: Code(s): I10 - Essential (primary) hypertension Status: Acute (5) Transaminitis: Code(s): R74.01 - Elevation of levels of liver transaminase levels Status: Acute (6) Hypothyroidism (acquired): Code(s): E03.9 - Hypothyroidism, unspecified Status: Acute (7) Chronic renal failure, stage 3b: Code(s): N18.32 - Chronic kidney disease, stage 3b Status: Acute DS: Summary Hospital Course Reason for hospitalization: - influenza A - HELEN - transaminitis Hospital Course: The patient is a 75-year-old male admitted for management of?Influenza A?with associated generalized weakness, dehydration, tachycardia, acute kidney injury on chronic kidney disease, and transaminitis. He was started on?oseltamivir (Tamiflu)?and received intravenous fluids with good clinical response. His?heart rate improved with IV hydration, and renal function stabilized. Liver transaminases, which were initially elevated,?trended down during hospitalization?without associated abdominal pain or signs of acute hepatobiliary pathology. He remained?hemodynamically stable and afebrile, with?no hypoxia, maintaining adequate oxygen saturation on room air throughout the admission. Chest X-ray showed no acute cardiopulmonary disease. His weakness improved, and he was able to?ambulate with a walker. Physical therapy was offered, but the patient?declined further therapy?and expressed a desire to return home. With?return to baseline functional status, family support in place, and clinical improvement, he was deemed medically stable and?discharged home with family?to complete his course of?Tamiflu, with outpatient follow-up as arranged. Status at Discharge Overall status at discharge: patient is progressing back to baseline Time Spent with Patient Time attestation: Total time spent providing and/or coordinating discharge services: Time spent: Greater than 30 minutes Exam Narrative: General: NAD Eyes: EOMI ENT: neck supple Cardiovascular: Regular rate and rhythm Respiratory: Clear to auscultation, respirations even and unlabored on RA Gastrointestinal: Soft, non tender Genitourinary: no suprapubic tenderness Musculoskeletal: No edema Skin: warm, dry Neuro: Alert. Psych: Mood appropriate DS: Data Data Completed and Pending Completed studies during hospitalization: ITS Impressions Chest X-Ray 06/21/25 22:05 IMPRESSION: 1: NO ACUTE CARDIOPULMONARY DISEASE. Labs on day of discharge: Labs from last 24 hours 06/22/25 06/22/25 06/22/25 11:46 10:27 07:25 WBC RBC Hgb Hct MCV MCH MCHC RDW Plt Count MPV Immature Gran % (Auto) Neut % (Auto) Lymph % (Auto) [place]mer % (Auto) Eos % (Auto) Baso % (Auto) Lymph # (Auto) [place] # (Auto) Eos # (Auto) Baso # (Auto) Abs Immat Gran (auto) Absolute Neuts (auto) Absolute Nucleated RBC Nucleated RBC % PT INR APTT Sodium 139 Potassium 3.6 Chloride 104 Carbon Dioxide 27 Anion Gap 8 BUN 25 H Creatinine 1.35 H Estim Creat Clear Calc 42 Estimated GFR 52 L Glucose 115 H POC Capillary Glucose 112 H 134 H Lactic Acid Calcium 8.5 Total Bilirubin 0.9 AST 89 H ALT 79 H Alkaline Phosphatase 88 Total Creatine Kinase C-Reactive Protein Total Protein 7.3 Albumin 3.9 Urine Color Urine Appearance Urine pH Ur Specific [place] Urine Protein Urine Glucose (UA) Urine Ketones Ur Blood (Man) Urine Nitrate Urine Bilirubin Urine Urobilinogen Leukocyte Esterase Rfl Urine RBC Urine WBC Ur Squamous Epith Cells Urine Bacteria Urine Casts Influenza A (RT-PCR) Influenza B (RT-PCR) RSV (RT-PCR) SARS-CoV-2 RNA (RT-PCR) 06/22/25 06/22/25 06/21/25 02:48 00:10 22:49 WBC RBC Hgb Hct MCV MCH MCHC RDW Plt Count MPV Immature Gran % (Auto) Neut % (Auto) Lymph % (Auto) [place] % (Auto) Eos % (Auto) Baso % (Auto) Lymph # (Auto) [place] # (Auto) Eos # (Auto) Baso # (Auto) Abs Immat Gran (auto) Absolute Neuts (auto) Absolute Nucleated RBC Nucleated RBC % PT INR APTT Sodium Potassium Chloride Carbon Dioxide Anion Gap BUN Creatinine Estim Creat Clear Calc Estimated GFR Glucose POC Capillary Glucose 159 H 176 H Lactic Acid Calcium Total Bilirubin AST ALT Alkaline Phosphatase Total Creatine Kinase C-Reactive Protein Total Protein Albumin Urine Color Yellow Urine Appearance Clear Urine pH 5.5 Ur Specific [place] 1.034 Urine Protein 1+ H Urine Glucose (UA) 3+ H Urine Ketones 1+ H Ur Blood (Man) Trace Urine Nitrate Negative Urine Bilirubin Negative Urine Urobilinogen 0.2 Leukocyte Esterase Rfl Negative Urine RBC 0-2 Urine WBC 0-5 Ur Squamous Epith Cells None seen Urine Bacteria None seen Urine Casts 0-2 Influenza A (RT-PCR) Influenza B (RT-PCR) RSV (RT-PCR) SARS-CoV-2 RNA (RT-PCR) 06/21/25 06/21/25 06/21/25 22:00 21:59 20:06 WBC 9.6 RBC 5.32 Hgb 16.9 Hct 49.8 MCV 93.6 MCH 31.8 MCHC 33.9 RDW 13.7 Plt Count 203 MPV 10.7 H Immature Gran % (Auto) 0.3 Neut % (Auto) 84.1 H Lymph % (Auto) 4.8 L Parmer % (Auto) 10.3 H Eos % (Auto) 0.0 Baso % (Auto) 0.5 Lymph # (Auto) 0.46 L [place] # (Auto) 1.0 H Eos # (Auto) 0.0 Baso # (Auto) 0.1 Abs Immat Gran (auto) 0.03 Absolute Neuts (auto) 8.1 H Absolute Nucleated RBC 0.000 Nucleated RBC % 0.0 PT 14.2 INR 1.1 APTT 26.1 Sodium 139 Potassium 3.4 Chloride 100 Carbon Dioxide 26 Anion Gap 13 H BUN 24 H Creatinine 1.78 H Estim Creat Clear Calc 32 Estimated GFR 38 L Glucose 181 H POC Capillary Glucose Lactic Acid 1.6 Calcium 10.6 H Total Bilirubin 1.3 AST 111 H ALT 102 H Alkaline Phosphatase 117 Total Creatine Kinase 126 C-Reactive Protein 2.5 H Total Protein 9.2 H Albumin 4.9 Urine Color Urine Appearance Urine pH Ur Specific [place] Urine Protein Urine Glucose (UA) Urine Ketones Ur Blood (Man) Urine Nitrate Urine Bilirubin Urine Urobilinogen Leukocyte Esterase Rfl Urine RBC Urine WBC Ur Squamous Epith Cells Urine Bacteria Urine Casts Influenza A (RT-PCR) Positive A Influenza B (RT-PCR) Negative RSV (RT-PCR) Negative SARS-CoV-2 RNA (RT-PCR) Negative 06/21/25 19:51 WBC RBC Hgb Hct MCV MCH MCHC RDW Plt Count MPV Immature Gran % (Auto) Neut % (Auto) Lymph % (Auto) [place] % (Auto) Eos % (Auto) Baso % (Auto) Lymph # (Auto) [place] # (Auto) Eos # (Auto) Baso # (Auto) Abs Immat Gran (auto) Absolute Neuts (auto) Absolute Nucleated RBC Nucleated RBC % PT INR APTT Sodium Potassium Chloride Carbon Dioxide Anion Gap BUN Creatinine Estim Creat Clear Calc Estimated GFR Glucose POC Capillary Glucose 194 H Lactic Acid Calcium Total Bilirubin AST ALT Alkaline Phosphatase Total Creatine Kinase C-Reactive Protein Total Protein Albumin Urine Color Urine Appearance Urine pH Ur Specific [place] Urine Protein Urine Glucose (UA) Urine Ketones Ur Blood (Man) Urine Nitrate Urine Bilirubin Urine Urobilinogen Leukocyte Esterase Rfl Urine RBC Urine WBC Ur Squamous Epith Cells Urine Bacteria Urine Casts Influenza A (RT-PCR) Influenza B (RT-PCR) RSV (RT-PCR) SARS-CoV-2 RNA (RT-PCR) Discharge Plan Discharge Attending physician on discharge: Neida Oden Consulting providers: Svetlana Gao Discharging Clinician: Svetlana Gao Anticipated Discharge Date/Time: 06/22/25 14:33 Patient Disposition: Home Activity: as tolerated Diet: regular Discharge Instructions: Your Diagnosis You were admitted to the hospital with influenza A (the flu), which caused dehydration leading to acute kidney injury (temporary kidney damage). You also had elevated liver enzymes that have improved but are still higher than normal. Your Medications Tamiflu (Oseltamivir) 30 mg: Take one capsule by mouth twice daily for 5 days total. This medication helps your body fight the influenza virus and reduces the duration of your symptoms. * You may take this medication with or without food, but taking it with food may help reduce nausea * Common side effects include nausea and vomiting[1] * Complete the full 5-day course even if you start feeling better * If you have difficulty swallowing capsules, you may open the capsule and mix it with a sweetened liquid like chocolate syrup Continue all your other home medications as prescribed unless your doctor told you otherwise. Activity and Recovery * Rest as needed. Most people recover from influenza within 3-7 days, though cough and fatigue may last up to 2 weeks * Gradually increase your activity as you feel better * Avoid strenuous exercise until you have fully recovered * You will need to pick-up a walker from a local pharmacy or have it ordered through your primary care provider for it to be covered by insurance. Hydration and Diet * Drink plenty of fluids (water, clear broths, electrolyte drinks) to stay well- hydrated and help your kidneys recove * Aim for at least 8-10 glasses of water daily unless your doctor advises otherwise * Eat a balanced, healthy diet * Limit or avoid alcohol completely, as it can worsen liver enzyme elevations Preventing Spread to Others * You may still be contagious. Stay home from work or school until you have been fever-free for at least 24 hours without using fever-reducing medications * Wash your hands frequently with soap and water * Cover your coughs and sneezes with a tissue or your elbow * Avoid close contact with others, especially those at high risk for complications Warning Signs - Seek Immediate Medical Attention If You Experience: * High fever that returns or does not improve * Difficulty breathing or shortness of breath * Chest pain or pressure * Severe or persistent vomiting that prevents you from keeping down fluids or medications * Confusion or severe dizziness * Decreased urination or dark-colored urine * Severe abdominal pain * Yellowing of your skin or eyes Follow-Up Care You must follow up with your primary care physician within 7-10 days of discharge.?This is very important to: * Check your kidney function with blood tests to ensure your kidneys are recovering properly * Recheck your liver enzymes to monitor improvement * Review your medications and overall recovery Your doctor may order: * Blood tests including creatinine to check kidney function * Liver function tests (AST, ALT) * Urine tests to check for protein, which can indicate ongoing kidney issues Important Reminders * Avoid medications that can harm your kidneys or liver, including non-steroidal anti-inflammatory drugs (NSAIDs) like ibuprofen or naproxen, unless approved by your doctor * Tell all healthcare providers about your recent kidney injury and liver enzyme elevation * Inform your doctor about all medications, supplements, and ocyv-nll-inwjyfu products you are taking, as some can affect your liver Questions? If you have any questions or concerns before your follow-up appointment, please call your primary care physician's office. Patient Instructions: Antibiotic Form Patient Language: Bengali Stand Alone Forms: General Discharge Information Follow-up/Referrals: Jose Guadalupe Mccormick MD [Primary Care Provider, [facility]] - Call for Appointment Referral Note: call for appointment in 5-7 days Discharge Medications: New oseltamivir [Tamiflu] 30 mg Capsule 30 mg PO Q12HR 4 Days Qty: 8 0RF Continued Januvia 25 mg tablet 25 mg PO DAILY Qty: 90 0RF Rx Instructions: Take 1 tablet po qd x 30 days then increase to 2 tablets po qd metformin 1,000 mg tablet See Rx Instructions .ROUTE .COMPLEX Qty: 180 1RF Dose Instruction: TAKE 1 TABLET BY MOUTH TWICE DAILY Rx Instructions: TAKE 1 TABLET BY MOUTH TWICE DAILY (DME) blood-glucose meter [Accu-Chek Guide Glucose Meter] [facility] See Rx Instructions .Route Qty: 1 0RF Rx Instructions: As directed (DME) Accu-Chek Guide test strips Strip See Rx Instructions .Route Qty: 100 0RF Rx Instructions: Check blood glucose 1xdaily As directed clobetasol 0.05 % cream 1 applic topical BID 7 Days Qty: 60 2RF Rx Instructions: apply to knee, neck, arms levothyroxine 75 mcg tablet See Rx Instructions .ROUTE .COMPLEX Qty: 90 1RF Dose Instruction: TAKE 1 TABLET BY MOUTH EVERY DAY Rx Instructions: TAKE 1 TABLET BY MOUTH EVERY DAY Jardiance 25 mg tablet See Rx Instructions .ROUTE .COMPLEX Qty: 90 1RF Dose Instruction: TAKE 1 TABLET BY MOUTH EVERY DAY IN THE MORNING Rx Instructions: TAKE 1 TABLET BY MOUTH EVERY DAY IN THE MORNING Held lisinopril-hydrochlorothiazide 20-12.5 mg tablet See Rx Instructions .ROUTE .COMPLEX Qty: 180 1RF Hold Instructions: Resume on 06/24/25. Hold until Tuesday due to concerns for dehydration Dose Instruction: TAKE 1 TABLET BY MOUTH TWICE A DAY Rx Instructions: TAKE 1 TABLET BY MOUTH TWICE A DAY Discontinued naproxen sodium [Aleve] 220 mg capsule 220 mg PO Q8H Date of admission: 06/21/25 23:37 Primary Care Provider: Jose Guadalupe Mccormick Admitting Provider: Leisa Retana Attending physician on admission: Leisa Retana Condition: Stable
== END 2025-06-22 15:50 | disposition home or self-care (01) ==
LOC: ANHED 23:42 → ANH3MEDSUR 06-22 06:59
PROVIDERS: Physician Assistant; Student in an Organized Health Care Education/Training Program; Admitting Provider Internal Medicine; Emergency Provider Physician Assistant; PCP Family Medicine; Visit Provider General Practice
DX: J10.1 Influenza due to other identified influenza virus with other respiratory manifestations (principal); N17.9 Acute kidney failure, unspecified; W18.30XA Fall on same level, unspecified, initial encounter; E03.9 Hypothyroidism, unspecified; Z79.84 Long term (current) use of oral hypoglycemic drugs; N18.32 Chronic kidney disease, stage 3b; I12.9 Hypertensive chronic kidney disease with stage 1 through stage 4 chronic kidney disease, or unspecified chronic kidney disease; E11.22 Type 2 diabetes mellitus with diabetic chronic kidney disease; Z20.822 Contact with and (suspected) exposure to COVID-19; Z87.891 Personal history of nicotine dependence
CPT/HCPCS: 36415; 71046; 80053; 81001; 82550; 82948; 83605; 85025; 85610; 85730; 86140; 87637; 93005; 96360; 99285; A9270; G0378; J7030